=== PATIENT | female | born 1950 | race Caucasian/White ===

== ENCOUNTER → 2020-01-17 | Outpatient (CLI) | payer OTHER | LOC: SJCVC 11:00 | PROVIDERS: ATTEND Internal Medicine Cardiovascular Disease | DX: R94.31 Abnormal electrocardiogram [ECG] [EKG] (principal); I49.5 Sick sinus syndrome; I48.0 Paroxysmal atrial fibrillation; D68.59 Other primary thrombophilia; R53.83 Other fatigue; R42 Dizziness and giddiness ==

== ENCOUNTER → 2020-01-31 | Outpatient (CLI) | payer OTHER ==
[~2020-01-31] MED LIST: CIMETIDINE200 MG PO; ELIQUIS5 MG PO; SERTRALINE HCL25 MG PO; SUPER THERAVIT1 EACH PO; WEEKLY-D1250 MCG PO; XANAX 0.5 MG0.5 M1 PO; ZOCOR 20 MG TAB20 M1 PO
[2020-01-31 09:47] LABS: HEMOGLOBIN 13.5 gm/dL (12.0-15.0); MCH 29.3 pg (26.0-34.0); MCHC 33.8 g/dL (28.0-37.0); MCV 86.5 fL (80.0-100.0); RBC 4.63 mil/uL (4.20-5.00); RDW 14.9 % (10.5-14.5); WBC 5.8 thou/uL (4.0-11.0)
[2020-01-31 09:57] LABS: ALBUMIN 3.6 g/dL (3.4-5.0); CALCIUM 8.7 mg/dL (8.5-10.1); CREATININE 0.8 mg/dL (0.6-1.0); POTASSIUM 4.3 mmol/L (3.5-5.1); TOTAL BILIRUBIN 0.5 mg/dL (0.2-1.0); TOTAL PROTEIN 7.4 g/dL (6.4-8.2)
== END ==
LOC: CAT 08:48
PROVIDERS: ATTEND Internal Medicine Cardiovascular Disease
DX: I48.91 Unspecified atrial fibrillation (principal)

== ENCOUNTER → 2020-01-31 | Outpatient (CLI) | payer OTHER | LOC: LAB | PROVIDERS: ATTEND Internal Medicine Cardiovascular Disease | DX: Z01.812 Encounter for preprocedural laboratory examination (principal); Z11.59 Encounter for screening for other viral diseases ==

== ENCOUNTER → 2020-02-02 | Outpatient (CLI) | payer OTHER ==
[~2020-02-02] VITALS: Ht 172.7 cm; Wt 78.0 kg
[2020-02-02 07:19] VITALS: BP 132/63
--- NOTE | 2020-02-02 09:32 | TEE ---
[facility] [place] [address] TRANSESOPHAGEAL ECHOCARDIOGRAM Name: JARROD RUIZ Room #: REG MAGUE Grajeda#: [id number] Admission: 02/02/20 Attend Phys: Bryan Jimenez MD, Discharge: Date of : 46 Report #: [id number] THIS REPORT FOR: cc: Isak Daniels MD, Bruce D. MD Lundgren, Craig H. MD [facility] ~ APPROVED REPORT Study performed: 02/02/2020 08:03:12 EXAM: Comprehensive 2D, Doppler, and color-flow Echocardiogram Patient Location: Out-Patient Room #: 9 Status: routine BSA: 0.62 HR: 59 bpm BP: 125/88 mmHg Rhythm: Bradycardia Other Information Study Quality: Excellent Indications Atrial Fibrillation Echo Enhancing Agent Indication: Rule out Shunt Agent(s) / Amount(s) Used: Agitated Saline 7 cc Procedure After obtaining informed consent, patient underwent transesophageal echo in the [facility] [employer]. Type of Sedation : Conscious Sedation Sedation was administered by Nurse. Sedation was achieved intravenously with: Versed (3 mg) Fentanyl (50 mcg) Transesophageal probe was inserted and advanced into esophagus without difficulty by Bryan Jimenez MD. Echo enhancement indication: R/O Septal defect. Echo enhancement agent administered: Agitated Saline The KATJA was performed without complications. Throughout the procedure, the blood pressure, pulse oximetry, cardiac rhythm, and rate were monitored. [facility] [address] [place] [address] TRANSESOPHAGEAL ECHOCARDIOGRAM Name: JARROD RUIZ Room #: REG [facility]#: [id number] Admission: 02/02/20 Attend Phys: Bryan Jimenez, Discharge: Date of : 46 Report #: [id number] The patient tolerated the procedure without adverse effects. Recovery from conscious sedation was uneventful and vital signs were stable. Left Ventricle The left ventricle is normal size. There is normal LV segmental wall motion. There is normal left ventricular wall thickness. The left ventricular systolic function is normal. The left ventricular ejection fraction is within the normal range. LVEF is 50-55%. Right Ventricle The right ventricle is normal size. The right ventricular systolic function is normal. Atria Left atrium is dilated. No thrombus is visualized in the left atrium or appendage. No shunting by contrast bubble injection The right atrium size is normal. Aortic Valve The aortic valve is normal in structure. No aortic regurgitation is present. There is no aortic valvular stenosis. Mitral Valve Mild posterior mitral leaflet prolapse. Mild mitral regurgitation. No evidence of mitral valve stenosis. Tricuspid Valve The tricuspid valve is normal in structure. There is no tricuspid valve regurgitation noted. Pulmonic Valve The pulmonary valve is normal in structure. There is no pulmonic valvular regurgitation. Great Vessels The aortic root is normal in size. The ascending aorta is normal in size. IVC is normal in size and collapses >50% with inspiration. Pericardium There is no pericardial effusion. <Conclusion> The left ventricular systolic function is normal. There is normal LV segmental wall motion. [facility] [address] [place] [address] TRANSESOPHAGEAL ECHOCARDIOGRAM Name: JARROD RUIZ Room #: REG [facility]#: [id number] Admission: 02/02/20 Attend Phys: Bryan Jimenez, Discharge: Date of : 46 Report #: [id number] LVEF is 50-55%. Left atrium is dilated. No thrombus is visualized in the left atrium or appendage. No shunting by contrast bubble injection The aortic valve is normal in structure. No aortic regurgitation or stenosis. Mild posterior mitral leaflet prolapse. Mild mitral regurgitation. Pulmonary artery systolic pressure could not be reliably ascertained There is no pericardial effusion. <ELECTRONICALLY SIGNED> By: Bryan Jimenez MD, FACC 02/02/20930 0 0 Bryan Jimenez MD, FACC /INF
== END | disposition home or self-care (01) ==
LOC: CATH → EDSTATUS 02-01 15:21 → CATH 02-01 15:34
PROVIDERS: ATTEND Internal Medicine
DX: I48.91 Unspecified atrial fibrillation (principal); I34.0 Nonrheumatic mitral (valve) insufficiency; E78.5 Hyperlipidemia, unspecified; E78.00 Pure hypercholesterolemia, unspecified; F32.9 Major depressive disorder, single episode, unspecified; F41.9 Anxiety disorder, unspecified; D64.9 Anemia, unspecified; K21.9 Gastro-esophageal reflux disease without esophagitis; Z98.890 Other specified postprocedural states; Z79.899 Other long term (current) drug therapy; Z79.01 Long term (current) use of anticoagulants; Z90.49 Acquired absence of other specified parts of digestive tract; Z85.828 Personal history of other malignant neoplasm of skin

== ENCOUNTER 2020-02-05 06:31 | Observation (INO) | payer OTHER ==
[~2020-02-05] VITALS: Ht 172.7 cm; Wt 75.3 kg
[2020-02-05] VITALS (8 sets, daily range): BP systolic 119–143; BP diastolic 45–77
[~2020-02-05 06:31] MED LIST changes: -XANAX 0.5 MG0.5 M1 PO
[2020-02-05] MEDS ORDERED: XANAX 0.5 MG0.5 M1 PO (07:20)
[2020-02-05 07:28] LABS: ABSOLUTE NEUTROPHILS 3.8 thou/uL (1.4-8.2); BASOPHILS 0.4 % (0.0-2.0); EOSINOPHILS 3.3 % (0.0-3.0); HEMATOCRIT 41.9 % (37.0-47.0); HEMOGLOBIN 13.7 gm/dL (12.0-15.0); LYMPHOCYTES 27.1 % (24.0-44.0); MCH 28.4 pg (26.0-34.0); MCHC 32.7 g/dL (28.0-37.0); MCV 86.9 fL (80.0-100.0); MONOCYTES 10.3 % (1.0-8.0); PLATELET COUNT 279 thou/uL (150-400); POLYS 58.9 % (36.0-66.0); RBC 4.82 mil/uL (4.20-5.00); RDW 15.2 % (10.5-14.5); WBC 6.5 thou/uL (4.0-11.0)
[2020-02-05 07:47] LABS: CALCIUM 9.1 mg/dL (8.5-10.1); CREATININE 0.8 mg/dL (0.6-1.0); POTASSIUM 4.2 mmol/L (3.5-5.1)
[2020-02-05 07:54] LABS: ALBUMIN 3.6 g/dL (3.4-5.0); TOTAL BILIRUBIN 0.4 mg/dL (0.2-1.0)
[2020-02-05 08:01] LABS: APTT 28.7 Seconds (24.5-32.8); PROTIME 9.9 Seconds (9.3-11.4)
--- NOTE | 2020-02-05 17:32 | NUR ---
PT. ARRIVE AT FLOOR AFTER 1400; AOX4; EDUCATED ABOUT MANTAINING LEG STRAIGHT; ST. "NOT BODY TOLD ME THAT"; REMAINED DURING THE TRANSER FROM STRETCHER TO BED; EDUCATED ABOUT HOLDING PRESSURE IF LAUGHING; ST. UNDERSTANDING; R. GROIN AREA SHOWED NO HEMATOMA AT THE MOMMENT OF ASSUMING CARE; DRESSING SHOWED FRESS DRAINAGE; MONITORING; AROUND 1520 WHILE MONITORING NOTICED INCREASE BLEEDING; PRESSURE SUSTAINED FOR 20 MIN; DRESSING CHANGED; PHYSICIAN NOTIFIED; PER PHYSICIAN MANTAIN PT. IN BED REST FOR 2 HOURS SINCE 1600 & FLAT FOR 30 MIN; PT. NOTIFIED; SR ON THE MONITOR; ASSESSMENT CHARGED; FOLLOWING POC; WILL PASS ON REPORT;
[2020-02-06] VITALS (7 sets, daily range): BP systolic 113–142; BP diastolic 55–84
--- NOTE | 2020-02-06 07:57 | NUR ---
ASSESSMENTS CHARTED, MEDS CHARTED GIVEN. DURING BEDSIDE REPORT, PATIENTS GROIN SITE WAS FOUND TO HAVE SATURATED THE PRESSURE DRESSING. DRESSING WAS CHANGED AND PRESSURE WAS HELD FOR 20 MINUTES. PATIENT WAS PUT BACK ON BEDREST FOR THREE HOURS WHEN THE PATIENT GOT UP TO THE BATHROOM. GROIN SITE WAS RECHECKED AND STILL DRY. WHEN GROIN SITE WAS RECHECKED AT MIDNIGHT, DRESSING HAD VERY SMALL SPOTS OF BLOOD THROUGH THE DRESSING. PATIENT GOT UP TO THE RESTROOM AT 0300 AND MORE SPOTS WERE SEEPING THROUGH DRESSING. WAS GATHERING SUPPLIES WHEN THE PATIENT CALLED OUT TO SAY SHE HAD GONE TO THE BATHROOM AND BLOOD WAS RUNNING DOWN HER LEGS. PRESSURE WAS HELD AGAIN FOR 20 MINUTES AND A LARGER PRESSURE DRESSING WAS PLACED. PATIENT VERY ANXIOUS THROUGH NIGHT TALKED TO DR. MENARD WHO GAVE XANAX ORDER AND ORDER TO REPLACE CHEUNG (PT SAID NO). SPOKE DR FOX NURSE IN THE AM.
--- NOTE | 2020-02-06 14:29 | NUR ---
Patient admits from home. 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 Tenative plan for dc today. Discussed HH possible patient agreeable and no preference for HH agency.
--- NOTE | 2020-02-06 15:28 | NUR ---
ASSUMED CARE OF PT AT SHIFT CHANGE. ASSESSMENTS CHARTED. MEDS GIVEN PER SEP. PT A&OX4. DR ENRIQUE'S NURSE HELD PRESSURE FOR APPROX. 45 MINUTES IN THE MORNING D/T MORE BLEEDING. BED REST EXTENDED. KLAUS OK'D DC LONG BLEEDING DIDN'T RESUME. DISCHARGE ORDERS AND INSTRUCTIONS COMPLETE. TELE AND IV DC'D. NO BLEEDING OBSERVED THE REMAINDER OF SHIFT. THE NURSE TOOK PT TO MAIN ENTRANCE VIA WHEELCHAIR TO WAITING IN PRIVATE CAR.
--- NOTE | 2020-02-08 08:34 | P ---
[facility] [place] [address] PROCEDURE REPORT Name: JARROD RUIZ Room #: 211-P [facility] Namrata Rhodes#: [id number] Admission: 02/05/20 Attend Phys: Cr Silverio MD Discharge: 02/06/20 Date of : 46 Report #: [id number] THIS REPORT FOR: cc: Isak Daniels MD, Bruce D. MD Couchonnal, Luis F. MD ~ CC: Isak Silverio ATRIAL FIBRILLATION ABLATION PREOPERATIVE DIAGNOSIS: Atrial fibrillation. POSTOPERATIVE DIAGNOSIS: Atrial fibrillation. HISTORY: The patient is a 69-year-old female with recurrent atrial fibrillation and evidence of sick sinus syndrome, here for AFib ablation. PROCEDURES PERFORMED: 1. Atrial fibrillation ablation, CPT code 10272. 2. 3D mapping, CPT code 52393. 3. Intracardiac echo, CPT code 51225. ANESTHESIA: The patient underwent general anesthesia, with no anesthesia related complications. DESCRIPTION OF PROCEDURE: The patient underwent informed consent. We discussed the details of the procedure including the risks, which include but not limited to bleeding, infection, vascular damage, cardiac perforation as well as stroke or CO. She understood these risks and is willing to proceed. The patient was brought to EP laboratory in a fasting and sedated state and prepped and draped in a sterile fashion. I injected lidocaine to the right groin region, obtained access to the right femoral vein x3, placing an 8, 9 and 7-Upper Sorbian short sheath using the modified Seldinger technique. Next, under fluoroscopy, decapolar catheter was placed easily in the coronary sinus and the ICE catheter was placed in the right atrium. At baseline, the patient was in sinus rhythm. Using intracardiac ultrasound, a 3D geometry of the left atrium was created using Quantuvisund and this was merged with the cardiac CT scan. Next, the patient was systemically heparinized and a transseptal was performed using a [place] needle and an SL1 sheath. This was straightforward and then I exchanged for the cryo sheath. 3D geometry of the left atrium was created using the Lasso catheter. Next, I started by isolating the pulmonary veins using cryoballoon. All 4 veins underwent a single 4-minute freeze. The left superior vein isolated within 75 seconds. The left inferior vein isolated in 35 seconds. The right superior pulmonary vein underwent isolation within 60 seconds and the right inferior pulmonary vein was isolated within 11 seconds. Postablation [address] [address] PROCEDURE REPORT Name: JARROD RUIZ Room #: 211-P [facility] Namrata Rhodes#: [id number] Admission: 02/05/20 Attend Phys: Cr Silverio MD Discharge: 02/06/20 Date of : 46 Report #: [id number] Lasso catheter was placed back into the left atrium and a repeat voltage map was created, which showed that all 4 pulmonary veins had been isolated. Next, the cryo sheath was pulled to the right atrium and a basic EP study was performed. AV block was noted at 320 milliseconds. Atrial ERP was noted at 220 milliseconds at a [address] cycle length. No SVT, AFib or atrial flutter was induced. Aggressive atrial burst pacing was performed down to 230 milliseconds with no induction of any arrhythmias. As such, the procedure was concluded. Using intracardiac ultrasound, I verified there was no pericardial effusion. The patient received systemic protamine, and once the ACT was within acceptable range, catheters and sheaths were pulled and hemostasis was obtained. CONCLUSION: Successful atrial fibrillation ablation with isolation of the pulmonary veins. <ELECTRONICALLY SIGNED> By: Cr Silverio MD 02/08/20 0834 [id number] [id number] Cr Silverio MD /nt
== END 2020-02-06 14:20 | disposition home or self-care (01) ==
LOC: CATH → 2N 14:34 → CATH 15:23 → 2N 02-06 14:20
PROVIDERS: ADMIT Internal Medicine Cardiovascular Disease; ATTEND Internal Medicine Cardiovascular Disease
DX: I48.0 Paroxysmal atrial fibrillation (principal); I49.5 Sick sinus syndrome
CPT/HCPCS: 62110; 62900; 70005

== ENCOUNTER → 2020-02-20 | Outpatient (CLI) | payer OTHER ==
[~2020-02-20] MED LIST changes: +XANAX 0.5 MG0.5 M1 PO
== END ==
LOC: SJCVC 13:42
PROVIDERS: ATTEND Internal Medicine Cardiovascular Disease
DX: R94.31 Abnormal electrocardiogram [ECG] [EKG] (principal); I48.0 Paroxysmal atrial fibrillation; I48.3 Typical atrial flutter; R00.1 Bradycardia, unspecified; D68.59 Other primary thrombophilia; E78.00 Pure hypercholesterolemia, unspecified; R42 Dizziness and giddiness; Z98.890 Other specified postprocedural states; Z86.79 Personal history of other diseases of the circulatory system; Z79.899 Other long term (current) drug therapy

== ENCOUNTER → 2020-04-17 | Outpatient (CLI) | payer OTHER | LOC: SJCVC 09:45 | PROVIDERS: ATTEND Internal Medicine Cardiovascular Disease | DX: I48.0 Paroxysmal atrial fibrillation (principal); R94.31 Abnormal electrocardiogram [ECG] [EKG]; D68.59 Other primary thrombophilia; I49.5 Sick sinus syndrome; E78.00 Pure hypercholesterolemia, unspecified ==

== ENCOUNTER → 2020-05-08 | Outpatient (CLI) | payer OTHER | LOC: SJCVC 13:36 | PROVIDERS: ATTEND Internal Medicine Cardiovascular Disease | DX: R94.31 Abnormal electrocardiogram [ECG] [EKG] (principal); I48.0 Paroxysmal atrial fibrillation; I49.5 Sick sinus syndrome; Z79.899 Other long term (current) drug therapy ==

== ENCOUNTER → 2020-08-08 | Outpatient (CLI) | payer OTHER | LOC: SJCVC 12:58 | PROVIDERS: ATTEND Internal Medicine Cardiovascular Disease | DX: I48.0 Paroxysmal atrial fibrillation (principal); R94.31 Abnormal electrocardiogram [ECG] [EKG]; I49.5 Sick sinus syndrome; I49.49 Other premature depolarization; E78.00 Pure hypercholesterolemia, unspecified; Z88.8 Allergy status to other drugs, medicaments and biological substances; Z90.710 Acquired absence of both cervix and uterus; Z98.890 Other specified postprocedural states; Z79.899 Other long term (current) drug therapy ==

== ENCOUNTER → 2020-09-10 | Outpatient (CLI) | payer OTHER | LOC: SJCVC 13:39 | PROVIDERS: ATTEND Internal Medicine Cardiovascular Disease | DX: R94.31 Abnormal electrocardiogram [ECG] [EKG] (principal); I48.0 Paroxysmal atrial fibrillation; I49.5 Sick sinus syndrome; I47.1 Supraventricular tachycardia; E78.00 Pure hypercholesterolemia, unspecified; F41.9 Anxiety disorder, unspecified; F32.9 Major depressive disorder, single episode, unspecified; Z88.5 Allergy status to narcotic agent; Z79.899 Other long term (current) drug therapy; Z72.89 Other problems related to lifestyle ==

== ENCOUNTER → 2021-02-12 | Outpatient (CLI) | payer OTHER | LOC: CAT 15:37 | PROVIDERS: ATTEND Family Medicine | DX: Z13.6 Encounter for screening for cardiovascular disorders (principal); E78.00 Pure hypercholesterolemia, unspecified; I25.10 Atherosclerotic heart disease of native coronary artery without angina pectoris ==

== ENCOUNTER → 2021-03-18 | Outpatient (CLI) | payer OTHER | LOC: SJCVC 13:00 | PROVIDERS: ATTEND Internal Medicine Cardiovascular Disease | DX: R94.31 Abnormal electrocardiogram [ECG] [EKG] (principal); I48.0 Paroxysmal atrial fibrillation; I47.1 Supraventricular tachycardia; Z88.5 Allergy status to narcotic agent; Z79.899 Other long term (current) drug therapy; Z72.89 Other problems related to lifestyle ==